=== PATIENT | male | born 1965 | race American Indian/Alaskan Native ===

== ENCOUNTER 2016-07-28 17:08 | Emergency (ER) | payer SELFPAY ==
[2016-07-28 17:39] VITALS: BP 140/98
== END 2016-07-28 22:55 | disposition left against medical advice (07) ==
LOC: ED 17:08
DX: K08.89 Other specified disorders of teeth and supporting structures (principal); Z53.21 Procedure and treatment not carried out due to patient leaving prior to being seen by health care provider